=== PATIENT | male | born 1945 | race Caucasian/White ===

== ENCOUNTER → 2017-05-17 | Outpatient (CLI) | payer OTHER, MEDICARE ==
[~2017-05-17] MED LIST: ALIS150T PO; AMOCLA875 PO; ASPI81CH PO; ATOR20 PO; AZOR PO; Azor 5-20 MG T1 EACH PO; CALCIUM + D3 PO; CARV6.25 PO; CLON.1 PO; CLON.3 PO; CLOP75 PO; DIGO.125 PO; ELIQUIS5 MG PO; FISH1000 PO; FURO20 PO; FURO40 PO; HYDR10 PO; MULVITMINF PO; NEBI10 PO; Norco 5-325 Ta1 EACH PO; OXYACE7.5T PO; OXYM.05NI; Prednisone20 MG PO; SPIR25 PO; Zofran4 MG PO
== END ==
LOC: LAB SHORT 11:48 → LAB 11:48
DX: D22.5 Melanocytic nevi of trunk (principal)
CPT/HCPCS: 88305

== ENCOUNTER → 2018-01-01 | Outpatient (CLI) | payer OTHER, MEDICARE | END | disposition home or self-care (01) | LOC: LAB EV 08:15 → LAB SHORT 08:15 | DX: E11.22 Type 2 diabetes mellitus with diabetic chronic kidney disease (principal) | CPT/HCPCS: 82043 ==

== ENCOUNTER → 2020-09-15 | Outpatient (CLI) | payer OTHER | END | disposition home or self-care (01) | LOC: LAB SHORT 11:57 | DX: D48.5 Neoplasm of uncertain behavior of skin (principal) | CPT/HCPCS: 88305 ==

== ENCOUNTER → 2020-11-23 | Outpatient (CLI) | payer OTHER | END | disposition home or self-care (01) | LOC: LAB 14:08 → LAB SHORT 14:08 | DX: L72.0 Epidermal cyst (principal) | CPT/HCPCS: 88304 ==

== ENCOUNTER → 2021-06-05 | Outpatient (CLI) | payer OTHER ==
[2021-06-05 15:54] LABS: BASOPHILS ABSOLUTE AUTO 0.07 K/mm3 (0.00-0.23); BASOPHILS PERCENT AUTO 1 % (0-2); EOSINOPHILS ABSOLUTE AUTO 0.34 K/mm3 (0.00-0.68); EOSINOPHILS PERCENT AUTO 5 % (0-6); Hematocrit 38.9 % (37.0-53.0); Hemoglobin 13.5 g/dL (13.5-17.5); IMMATURE GRAN ABSOLUTE AUTO 0.02 K/mm3 (0.00-0.10); IMMATURE GRAN PERCENT AUTO 0 % (0-1); LYMPHOCYTES ABSOLUTE AUTO 1.37 K/mm3 (0.84-5.20); LYMPHOCYTES PERCENT AUTO 22 % (21-46); MONOCYTES ABSOLUTE AUTO 0.62 K/mm3 (0.16-1.47); MONOCYTES PERCENT AUTO 10 % (4-13); Mean Corpuscular HGB Conc 34.7 g/dL (31.5-36.5); Mean Corpuscular Volume 95 fL (80-100); Mean Platelet Volume 10.4 fL (9.1-12.4); NEUTROPHILS ABSOLUTE AUTO 3.86 K/mm3 (1.96-9.15); NEUTROPHILS PERCENT AUTO 62 % (41-73); Platelet Count 224 K/mm3 (150-400); RDW Coefficient Variation 12.9 % (11.7-14.2); RDW Standard Deviation 43.8 fL (35.1-46.3); Red Blood Cell Count 4.09 M/mm3 (4.30-5.90); White Blood Cell Count 6.28 K/mm3 (4.00-11.30)
[2021-06-05 15:56] LABS: Bun/Creatinine Ratio 17.5 (12.0-20.0); Calcium, Blood 9.3 mg/dL (8.5-10.1); Creatinine, Blood 1.2 mg/dL (0.60-1.20); Potassium, Blood 3.8 mmol/L (3.5-5.5)
== END ==
LOC: LAB SHORT 15:48
PROVIDERS: Physician Assistant Surgical
DX: I95.9 Hypotension, unspecified (principal)
CPT/HCPCS: 80048; 83880; 85025

== ENCOUNTER → 2022-02-16 | Outpatient (CLI) | payer OTHER ==
[2022-02-16 12:42] LABS: Body Fluid Crystals NEG (NEGATIVE)
[2022-02-16 12:58] LABS: WBC Count, Synovial Fluid 3780 /mm3 (0-180)
[2022-02-16 13:30] LABS: RBC Count, Synovial Fluid 893 /mm3 (0-0)
[2022-02-16 13:46] LABS: Monocytes/Macrophages, Synovia 5 % (0-65); Neutrophils, Synovial Fluid 95 % (0-24)
[2022-02-16 13:47] LABS: Appearance, Synovial Fluid Hazy (Clear); Color, Synovial Fluid Yellow (None-P Yel)
== END | disposition home or self-care (01) ==
LOC: LAB 11:35 → LAB SHORT 11:35
PROVIDERS: Orthopaedic Surgery
DX: M17.12 Unilateral primary osteoarthritis, left knee (principal); M25.562 Pain in left knee; M25.469 Effusion, unspecified knee
CPT/HCPCS: 89051; 89060

== ENCOUNTER 2022-04-12 06:56 | Day surgery (SDC) | payer OTHER ==
[~2022-04-12] VITALS: Ht 182.9 cm; Wt 108.2 kg
[~2022-04-12 06:56] MED LIST changes: +ATOR40TA PO; +HYDRA25 PO; +METF500 PO; +MULVITA PO; +TORS10 PO
--- NOTE | 2022-04-12 15:43 | NUR ---
Pt. i sitting up in a recliner with his legs extended and welcomes my visit. Pt. is pleasant. Facilitated a life review and established rapport. Pt. displayed evidence of being encouraged and very engaged in his future recovery. Pt. did not express much interest in spiritual matters, but was very interested in conversation. Pt. verbalized gratitude for the spiritual care visit, and expressed verbal appreciation for his primary nurse, Bret.
--- NOTE | 2022-04-12 18:52 | NUR ---
SHIFT SUMMARY PATIENT NEW ADMIT TO UNIT FROM PACU POD [address] CRISTINA. SPINAL IN EFFECT FOR SEVERAL HOURS. LATER IN AFTERNOON PATIENT WAS ABLE TO STAND WITH SBA AND FWW AND GAIT BELT TO AMBULATE IN ROOM TO BATHROOM. VOIDING WELL. TOLERATING ADA DIET, NO INSULIN COVERAGE NEEDED. MEDICATED FOR PAIN PER EMAR. AQUACEL, JACKY WRAP, AND POLAR PACK ALL IN PLACE TO LEFT KNEE. REPORT GIVEN TO EDUCATIONAL AID RN.
--- NOTE | 2022-04-13 04:38 | NUR ---
SHIFT SUMMARY NO ACUTE CHANGES. LEFT KNEE DRESSING REMAINS CDI WITH POLAR PACK IN PLACE. 2 ROXICODONE/TORADOL/TYLENOL FOR PAIN MANAGEMENT. UP WITH 1 ASSIST USING FWW + GB TO THE BATHROOM. VSS. USES CALL LIGHT APPROPRIATELY.
[2022-04-13 05:12] LABS: Bun/Creatinine Ratio 21.4 (12.0-20.0); Calcium, Blood 8.8 mg/dL (8.5-10.1); Creatinine, Blood 1.12 mg/dL (0.60-1.20); Potassium, Blood 3.5 mmol/L (3.5-5.5)
[2022-04-13 05:25] LABS: BASOPHILS ABSOLUTE AUTO 0.07 K/mm3 (0.00-0.23); BASOPHILS PERCENT AUTO 1 % (0-2); EOSINOPHILS PERCENT AUTO 4 % (0-6); Hematocrit 31.9 % (37.0-53.0); Hemoglobin 10.9 g/dL (13.5-17.5); IMMATURE GRAN ABSOLUTE AUTO 0.05 K/mm3 (0.00-0.10); IMMATURE GRAN PERCENT AUTO 1 % (0-1); LYMPHOCYTES ABSOLUTE AUTO 1.19 K/mm3 (0.84-5.20); LYMPHOCYTES PERCENT AUTO 13 % (21-46); MONOCYTES ABSOLUTE AUTO 0.87 K/mm3 (0.16-1.47); MONOCYTES PERCENT AUTO 9 % (4-13); Mean Corpuscular HGB 31.1 pg (26.0-34.0); Mean Corpuscular HGB Conc 34.2 g/dL (31.5-36.5); Mean Corpuscular Volume 91 fL (80-100); Mean Platelet Volume 10.1 fL (9.1-12.4); NEUTROPHILS PERCENT AUTO 72 % (41-73); Platelet Count 223 K/mm3 (150-400); RDW Coefficient Variation 13.5 % (11.7-14.2); RDW Standard Deviation 45.3 fL (35.1-46.3); White Blood Cell Count 9.28 K/mm3 (4.00-11.30)
[2022-04-13] MEDS ORDERED: Percocet 5-3251 EACH PO (08:37)
--- NOTE | 2022-04-13 11:29 | NUR ---
DISCHARGE SUMMARY PATIENT ALERT AND ORIENTED. TOLERATING ADA DIET AND LIQUIDS. VOIDING WELL. SALINE LOCKED. SBA WITH FWW AND GAIT BELT TO AMBULATE IN ROOM AND HALLS. CLEARED FOR DISCHARGE BY PHYSICAL THERAPY. LEFT KNEE PAIN CONTROLLED WITH PO PAIN MEDS. AQUACEL C/D/I. JACKY WRAP, COMPRESSION STOCKING, AND POLAR PACK IN PLACE. LE ELEVATED WHEN IN RECLINER. DISCHARGE EDUCATION GIVEN ON PAIN RX, INCISION CARE, ACTIVITY, AND FOLLOW UP WITH PHYSICAL THERAPY AND ORTHO. PATIENT LEFT UNIT AT 1130 VIA WHEELCHAIR FOR HOME WITH SPOUSE.
== END 2022-04-13 11:17 | disposition home or self-care (01) ==
LOC: ORSCMMR 06:56 → ORD 08:15 → ORSCMMR 08:15 → ORD 10:00 → SURS 11:46 → ORSCMMR 04-13 11:17
PROVIDERS: Orthopaedic Surgery
PROC: 8E0Y0CZ Robotic Assisted Procedure of Lower Extremity, Open Approach (ICD-10-PCS; principal; 2022-04-12 09:30)
PROC: 0SRD0JA Replacement of Left Knee Joint with Synthetic Substitute, Uncemented, Open Approach (ICD-10-PCS; principal; 2022-04-12 09:30)
DX: M17.12 Unilateral primary osteoarthritis, left knee (principal); I25.10 Atherosclerotic heart disease of native coronary artery without angina pectoris; I10 Essential (primary) hypertension; E11.9 Type 2 diabetes mellitus without complications; E66.9 Obesity, unspecified; Z68.32 Body mass index [BMI] 32.0-32.9, adult; E78.5 Hyperlipidemia, unspecified; Z79.82 Long term (current) use of aspirin; Z79.01 Long term (current) use of anticoagulants; Z79.899 Other long term (current) drug therapy; Z79.85 Long-term (current) use of injectable non-insulin antidiabetic drugs
CPT/HCPCS: 27447; 20985; S2900; 36415; 73560-LT; 80048; 82947; 85025; 94660; 94762; 97110; 97116; 97161; A9270; C1776; J0171; J0690; J0735; J1100; J1885; J2250; J2405; J2704; J2795; J3010; J7120

== ENCOUNTER 2024-03-20 12:34 | Emergency (ER) | payer OTHER ==
[~2024-03-20] VITALS: Ht 182.9 cm; Wt 108.9 kg
[~2024-03-20 12:34] MED LIST changes: +Percocet 5-3251 EACH PO
[2024-03-20 13:35] LABS: BASOPHILS ABSOLUTE AUTO 0.06 K/mm3 (0.00-0.23); BASOPHILS PERCENT AUTO 1 % (0-2); EOSINOPHILS ABSOLUTE AUTO 0.34 K/mm3 (0.00-0.68); EOSINOPHILS PERCENT AUTO 5 % (0-6); Hematocrit 43.7 % (37.0-53.0); IMMATURE GRAN ABSOLUTE AUTO 0.02 K/mm3 (0.00-0.10); IMMATURE GRAN PERCENT AUTO 0 % (0-1); LYMPHOCYTES ABSOLUTE AUTO 1.48 K/mm3 (0.84-5.20); LYMPHOCYTES PERCENT AUTO 21 % (21-46); MONOCYTES ABSOLUTE AUTO 0.53 K/mm3 (0.16-1.47); MONOCYTES PERCENT AUTO 7 % (4-13); Mean Corpuscular HGB 33.2 pg (26.0-34.0); Mean Corpuscular HGB Conc 34.3 g/dL (31.5-36.5); Mean Corpuscular Volume 97 fL (80-100); Mean Platelet Volume 9.7 fL (9.1-12.4); NEUTROPHILS ABSOLUTE AUTO 4.69 K/mm3 (1.96-9.15); NEUTROPHILS PERCENT AUTO 66 % (41-73); Platelet Count 266 K/mm3 (150-400); RDW Coefficient Variation 14.1 % (11.7-14.2); RDW Standard Deviation 50.6 fL (35.1-46.3); Red Blood Cell Count 4.52 M/mm3 (4.30-5.90); White Blood Cell Count 7.12 K/mm3 (4.00-11.30)
[2024-03-20 13:59] LABS: Bilirubin, Total 1.2 mg/dL (0.1-1.0); Calcium, Blood 9.6 mg/dL (8.5-10.1); Creatinine, Blood 0.96 mg/dL (0.60-1.20); Globulin, Blood 3.9 g/dL (2.2-4.0); Potassium, Blood 3.8 mmol/L (3.5-5.5); Total Protein, Blood 7.9 g/dL (6.4-8.2)
[2024-03-20 15:34] VITALS: BP 165/86
== END 2024-03-20 15:34 | disposition home or self-care (01) ==
LOC: ER 12:34
PROVIDERS: Physician Assistant
DX: R55 Syncope and collapse (principal); I48.20 Chronic atrial fibrillation, unspecified; Z88.8 Allergy status to other drugs, medicaments and biological substances; Z79.01 Long term (current) use of anticoagulants; Z79.84 Long term (current) use of oral hypoglycemic drugs; Z79.899 Other long term (current) drug therapy
CPT/HCPCS: 70450; 71046; 80053; 84484; 85025; 93005; 93010; 99284-25